=== PATIENT | female | born 1985 | race Caucasian/White ===

== ENCOUNTER 2023-09-13 16:10 | Emergency (ER) | payer OTHER, SELFPAY ==
[2023-09-13 16:12] VITALS: BP 129/102
[2023-09-13 16:42] LABS: % Basophils 0.6 % (0-2); % Eosinophils 2.1 % (0-6); % Immature Granulocytes 0.2 % (0-0.5); % Lymphocytes 38.5 % (20.5-51.1); % Monocytes 12.5 % (1.7-9.3); % Neutrophils 46.1 % (42.2-75.2); Absolute Eosinophils 0.1 10^3/uL (0-0.7); Absolute Lymphocytes 2.6 10^3/uL (1.2-3.4); Absolute Monocytes 0.8 10^3/uL (0.1-0.6); Absolute Neutrophils 3.1 10^3/uL (1.4-6.5); Hematocrit 37.8 % (37.0-47.0); Mean Corp Hgb Conc. 34.4 g/dL (33.0-37.0); Mean Corpuscular Hgb 31.5 pg (27.0-31.0); Mean Corpuscular Volume 91.5 fL (81.0-99.0); Mean Platelet Volume 9.8 fL (7.4-10.4); Nucleated Red Blood Cells % 0 %; Platelet Count 316 10^3/uL (130-400); Red Blood Cell Count 4.13 10^6/uL (4.20-5.40); Red Cell Dist. Width 12.4 % (11.5-14.5); White Blood Cell Count 6.6 10^3/uL (4.8-10.8)
[2023-09-13 16:47] LABS: HCG, Serum Qualitative Screen Negative
[2023-09-13 16:59] LABS: ALT (SGPT) 36 U/L (0-35); AST (SGOT) 44 U/L (14-36); Albumin 4.6 g/dl (3.5-5.0); Alkaline Phosphatase 66 U/L (38-126); Blood Urea Nitrogen 15 mg/dl (7-17); Calcium 9.3 mg/dl (8.4-10.2); Carbon Dioxide 22 mmol/L (22-30); Chloride 108 mmol/L (98-107); Glucose 91 mg/dl (70-99); Potassium 3.9 mmol/L (3.5-5.1); Sodium 137 mmol/L (135-145); Total Bilirubin 0.4 mg/dl (0.2-1.3); Total Protein 7.2 g/dl (6.3-8.2); eGFR > 60.00
[2023-09-13 19:56] VITALS: BP 125/73
[2023-09-13 19:58] VITALS: BMI 25.8
--- NOTE | 2023-09-13 20:06 | ED.GENMED ---
History of Present Illness
General
Chief Complaint: Dizziness
Source: patient
Exam Limitations: none
Time Seen by Provider: 09/13/23 19:55
Travel History
Have you had any contact with someone who has COVID-19?: No
Do you have any symptoms of coronavirus? Fever > 100 degrees, chills, cough, shortness of breath, sore throat, loss of taste or smell, muscle aches, or headache?: No
History of Present Illness
History of Present Illness:
See MDM
Phy Exam
Physical Exam
Physical Exam:
See MDM
Course
Orders/Labs/Results
Orders:
Orders
09/13/23 16:17
EKG [Electrocardiogram (*1)] Urgent
Reason for Study: Vertigo / Dizzy
EKG- Treatment ONCE
09/13/23 16:18
Test Result ONCE
09/13/23 16:32
CBC/With Diff [Complete Blood Count/With Diff] Urgent
CMP [Comprehensive Metabolic Panel] Urgent
HCG, Serum Qualitative Screen Urgent
Abnormal Lab Results
09/13/23
16:32
RBC 4.13 L 10^6/uL
(4.20-5.40)
MCH 31.5 H pg
(27.0-31.0)
Absolute Monos (auto) 0.8 H 10^3/uL
(0.1-0.6)
Monocytes % 12.5 H %
(1.7-9.3)
Chloride 108 H mmol/L
(98-107)
AST 44 H U/L
(14-36)
ALT 36 H U/L
(0-35)
09/13/23 16:32
09/13/23 16:32
Vital Signs
Initial and Last Documented VS:
Initial Vital Signs
Temp Pulse Resp BP Pulse Ox
97.9 F 97 18 129/102 99
09/13/23 16:12 09/13/23 16:12 09/13/23 16:12 09/13/23 16:12 09/13/23 16:12
Last Documented Vital Signs
Temp Pulse Resp BP Pulse Ox
97.9 F 97 18 125/73 98
09/13/23 16:12 09/13/23 16:12 09/13/23 16:12 09/13/23 19:56 09/13/23 20:00
MDM/Problems Addressed
Differential Diagnosis Includes:
HPI and MDM Narrative:
38-year-old female presenting for evaluation of dizziness. Patient was recently started on Eliquis after she was diagnosed with a portal venous thrombosis. At that time, it was believed to be related to control. Patient has noted that she
has been mildly dizzy every time she takes Eliquis. Ever since she stopped control, she started to have her menstrual cycle again. Patient noted that her menstrual bleeding has decreased drastically yesterday. Her last dose of Eliquis was
this morning and her bleeding has continued to improve. She talk to her functional manager and explained that she is dizzy and having vaginal bleeding. Because she is on a blood thinner, she was sent to department for evaluation. On arrival, patient
states she is already feeling better.
Physical exam
General: Well appearing and non-toxic
HEENT: protecting airway
Neck: supple
CV: No evidence of cyanosis. Regular rate and rhythm
Resp: No accessory muscle use
Abd: Non-distended
Extremities: No deformities
Neuro: alert. Normal finger-nose bilaterally
Psych: Normal affect
Skin: Intact
Problems Addressed including Acute and Chronic Conditions affecting care:
1. Dizziness
Acuity: acute
Prognosis: stable
Details: EKG within normal limits. Normal finger-nose bilaterally. Symptoms resolving without intervention
2. Vaginal bleeding
Acuity: acute
Prognosis: stable
Details: Likely related to recently stopping control. Vaginal bleeding improving despite being on Eliquis. Hemoglobin stable
Updates
Patient will call her functional manager tomorrow to discuss possible Eliquis side effects and to discuss possible different anticoagulation
Differential Diagnosis (but not limited to):
Testing considered:
Drug therapy (if applicable): OTC meds, please see d/c instruction regarding Rx drugs
Amount and/or Complexity of Data Reviewed
Clinical info obtained from: Patient
External data reviewed: N/A
Labs I independently reviewed (but not limited to): Hemoglobin stable
Radiology: N/A
Pulse Ox: not hypoxic
EKG independently reviewed: Sinus rhythm, normal axis, no STEMI
[employer] Supervisor: N/A
Critical Care: N/A
Risk of Complication:
Social Determinants of health: Good social support
Discussed with other providers: N/A
Escalation of Care includes Admit/Obs: After being observed in the Emergency Department, pt stable for discharge.
Occasional wrong word or 'sound a like' substitutions may have occurred due to the inherent limitations of voice recognition software. Read the chart carefully and recognize, using context, where substitutions have occurred.
*Critical Care Note
Total Time (30-74mins, 75-104mins- exclusive of procedures): Not Applicable
ED Attending Note
-
Portions of this chart may have been created with voice recognition software.� Occasional wrong word or��sound alike� substitutions may have occurred due to the inherent limitations of voice recognition software.
Discharge Plan
Departure
Patient Disposition: Home (Routine Discharge)
Date of Disposition: 09/13/23
Time of Disposition: 20:06
Patient with high blood pressure during this ER visit?: No
Discharge Problem:
Dizziness
Instructions: Dizziness
Activity Restrictions/Additional Instructions:
It is not certain whether or not your symptoms are related to a side effect of Eliquis. Your hemoglobin level is normal indicating that your dizziness is not related to excessive blood loss. Please call your functional manager tomorrow to discuss your
symptoms and to discuss whether or not you should start a different blood thinner. Please return for worsening symptoms.
Interventions
Interventions:
*Risk Screen - Suicide Last Done: 09/13/23 16:12
*General Assessment Last Done: 09/13/23 16:12
*Neglect/Abuse Screening Last Done: 09/13/23 20:00
*ED COVID-19 Vaccine History Last Done: 09/13/23 20:00
ED-Skin Assessment Last Done: 09/13/23 20:00
ED- Pulmonary Assessment Last Done: 09/13/23 20:00
ED- Neurological Assessment Last Done: 09/13/23 20:00
ED Swallowing Screen Last Done: 09/13/23 20:00
== END 2023-09-13 20:23 | disposition home or self-care (01) ==
LOC: EMR 16:10
PROVIDERS: Emergency Medicine; EMERGENCY PHYSICIAN Student in an Organized Health Care Education/Training Program; FAMILY PHYSICIAN Family Medicine
DX: R42 Dizziness and giddiness (principal); R53.83 Other fatigue
CPT/HCPCS: 99284; 80053; 84703; 85025; 93005

== ENCOUNTER → 2023-09-26 06:26 | Day surgery (SDC) | payer OTHER, SELFPAY | LOC: GI 06:26 | PROVIDERS: ATTENDING PHYSICIAN Internal Medicine | DX: K63.5 Polyp of colon (principal); K25.9 Gastric ulcer, unspecified as acute or chronic, without hemorrhage or perforation; K29.70 Gastritis, unspecified, without bleeding; K44.9 Diaphragmatic hernia without obstruction or gangrene; K31.89 Other diseases of stomach and duodenum; R10.11 Right upper quadrant pain; R93.3 Abnormal findings on diagnostic imaging of other parts of digestive tract; Z87.19 Personal history of other diseases of the digestive system | CPT/HCPCS: 45385; 45380; 43239; 88305; 88342 ==

== ENCOUNTER → 2023-10-03 06:39 | Outpatient (REF) | payer OTHER, SELFPAY | LOC: MRI 06:39 | PROVIDERS: ATTENDING PHYSICIAN Orthopaedic Surgery; FAMILY PHYSICIAN Family Medicine | DX: M54.9 Dorsalgia, unspecified (principal); M54.2 Cervicalgia | CPT/HCPCS: 72141; 72146 ==

== ENCOUNTER 2024-06-19 05:54 | Emergency (ER) | payer OTHER, SELFPAY ==
[2024-06-19 05:56] VITALS: BP 131/94
--- NOTE | 2024-06-19 08:16 | ED.GENMED ---
History of Present Illness
General
Chief Complaint: Musculo-Skeletal Complaint
Source: patient
Time Seen by Provider: 06/19/24 08:05
History of Present Illness
History of Present Illness:
39yoF with a history of Chiari malformation, portal vein thrombosis not currently on anticoagulation, anxiety, and depression presenting with her mother for evaluation of neck pain. Patient slept wrong a few days ago and has been having mild neck
pain since then. She woke up around 3am this morning with severe spasms in the left side of her neck radiating down the left arm. The pain is worse with certain positions. She also reports mild tingling in the fingers. She took a dose of leftover
Flexeril with some improvement. She denies any headache, photophobia, fevers, vomiting, chest pain, shortness of breath. She reports a history of neck issues. She had an MRI of her cervical spine in September 2023 which revealed 'Changes of degenerative
disc disease, mainly at C5-6 and C6-7. At C5-6, there is compression of the left anterior spinal cord from a new broad-based left paracentral disc protrusion.' She was previously seeing [facility] orthopedics for this and underwent physical
therapy.
Phy Exam
General Physical Exam
General Presentation: well appearing and no apparent distress
General age: appears stated age
General Skin: warm and dry
General Habitus: normal
General Mental: alert
ENT Exam
ENT Exam: normocephalic and other (No tenderness to palpation of cervical spine. Pain is elicited with neck rotation to the R. ROM of neck is full without meningismus. )
Cardiovascular Exam
Cardiovascular Exam: regular rate/rhythm, no murmur and normal peripheral pulses (2+ radial pulse bilaterally)
Pulmonary Exam
Pulmonary Exam: lungs clear, no respiratory distress, no rales, no crackles and no rhonchi
Neurological Exam
Neurological Exam: alert
[place] Coma Scale
Eye Opening: Spontaneous
Verbal Response: Oriented
Motor Response: Obeys Commands
GCS Total Score: 15
Skin Exam
Skin Exam: normal color and warm/dry
Psychiatric Exam
Psychiatric Exam: normal mood/affect
Course
Orders/Labs/Results
Orders:
Orders
06/19/24 08:15
Acetaminophen [Tylenol] 1,000 mg PO NOW STA
Ketorolac [Toradol] 30 mg IM NOW STA
06/19/24 08:20
Lidocaine [Lidocaine 4% Patch] 1 patch TOPICAL ONCE ONE
Apply Lidocaine patch(s) to:: L neck
06/19/24 08:27
Acetaminophen [Tylenol] 500 mg .ROUTE .STK-MED ONE
Vital Signs
Initial and Last Documented VS:
Initial Vital Signs
Temp Pulse Resp BP Pulse Ox
98.2 F 84 18 131/94 99
06/19/24 05:56 06/19/24 05:56 06/19/24 05:56 06/19/24 05:56 06/19/24 05:56
Last Documented Vital Signs
Temp Pulse Resp BP Pulse Ox
98.2 F 84 18 119/76 95
06/19/24 05:56 06/19/24 05:56 06/19/24 05:56 06/19/24 09:00 06/19/24 09:00
MDM/Problems Addressed
Differential Diagnosis Includes:
39yoF here with L sided neck pain. Mild pain for a few days after sleeping wrong. Woke up with severe neck spasm with radiation down L arm. Worse with movement. Now improved after taking Flexeril. VSS. She is well appearing in no distress. Neck pain
is elicited with neck rotation. No meningismus noted. Differential diagnosis includes but is not limited to: muscular strain/spasm, radiculopathy, no clinical evidence of meningitis, doubt cardiac
Initial ED plan: Patient had MRI cervical spine in September of this year. No indication for repeat imaging at this time as she denies trauma. Offered IV medications which she declines. IM Toradol, Tylenol, and lidocaine patch ordered.
*Critical Care Note
Total Time (30-74mins, 75-104mins- exclusive of procedures): Not Applicable
Update Note
Update Note:
Patient reassessed after medications and she is feeling much better. Neck pain is now a 3/10 in severity. She feels comfortable with discharge. Supportive care discussed including lidocaine patches and Tylenol. Refill provided for Flexeril. Advised
f/u with PCP and orthopedics. ED return precautions discussed. She was discharged in stable condition.
ED Attending Note
-
Portions of this chart may have been created with voice recognition software.� Occasional wrong word or��sound alike� substitutions may have occurred due to the inherent limitations of voice recognition software.
Discharge Plan
Departure
Patient Disposition: Home (Routine Discharge)
Date of Disposition: 06/19/24
Time of Disposition: 09:20
Patient with high blood pressure during this ER visit?: No
Discharge Problem:
Cervical paraspinal muscle spasm
Instructions: Cervical Muscle Strain
Prescriptions:
New
cyclobenzaprine 10 mg tablet
10 mg PO Q8H PRN (Reason: muscle spasms) Qty: 21 0RF
Referrals:
Bryson Rand MD [Family Provider] -
Activity Restrictions/Additional Instructions:
Use lidocaine patches daily (12 hours on, 12 hours off). Take Tylenol 650mg every 6 hours as needed. Take Flexeril (muscle relaxer) as needed for spasms.
Please follow-up with your family doctor and orthopedics. Return to the ER with any new or worsening symptoms.
Interventions
Interventions:
*Risk Screen - Suicide Last Done: 06/19/24 05:56
*General Assessment Last Done: 06/19/24 05:56
*ED COVID-19 Vaccine History Last Done: 06/19/24 05:56
*Nursing Disposition Last Done: 06/19/24 09:36
ED-Musculoskeletal Assessment Last Done: 06/19/24 08:25
Discharge Date and Time
Discharge Date/Time: 06/19/24 09:36
Print Language: ALGERIAN
[2024-06-19 08:22] VITALS: BP 117/101
[2024-06-19 08:25] VITALS: BP 117/100; BMI 27.3
[2024-06-19] MEDS: TORADOL 30 MG IM (08:26)
[2024-06-19] MEDS: TYLENOL 1000 MG PO (08:27)
[2024-06-19] MEDS: LIDOCAINE 4% PATCH 1 PATCH TOPICAL (08:28)
[2024-06-19 09:00] VITALS: BP 119/76
== END 2024-06-19 09:36 | disposition home or self-care (01) ==
LOC: EMR 05:54
PROVIDERS: EMERGENCY PHYSICIAN Emergency Medicine; FAMILY PHYSICIAN Family Medicine
DX: M62.838 Other muscle spasm (principal); M50.222 Other cervical disc displacement at C5-C6 level; M50.322 Other cervical disc degeneration at C5-C6 level
CPT/HCPCS: 99282; 96372

== ENCOUNTER → 2024-09-25 09:54 | Outpatient (REF) | payer OTHER, SELFPAY | LOC: RAD 09:54 | PROVIDERS: ATTENDING PHYSICIAN Hospitalist; FAMILY PHYSICIAN Family Medicine | DX: R06.00 Dyspnea, unspecified (principal) | CPT/HCPCS: 71046 ==

== ENCOUNTER → 2025-06-25 08:40 | Outpatient (REF) | payer OTHER, SELFPAY | LOC: RAD 08:40 | PROVIDERS: ATTENDING PHYSICIAN Physician Assistant Medical | DX: R91.1 Solitary pulmonary nodule (principal) | CPT/HCPCS: 71260; Q9967 ==